=== PATIENT | male | born 1965 | race Caucasian/White ===

== ENCOUNTER → 2016-12-25 | Outpatient (CLI) | payer OTHER ==
[~2016-12-25] MED LIST: ANAPROX DS550 MG PO; IMIPRAMINE HCL50 MG PO; SKELAXIN800 MG PO; VICODIN 5/500 505 MG PO
== END | disposition home or self-care (01) ==
LOC: RAD 09:50
DX: M17.11 Unilateral primary osteoarthritis, right knee (principal)

== ENCOUNTER 2017-02-21 17:38 | Inpatient (IN) | payer OTHER ==
[~2017-02-21] VITALS: Ht 175.2 cm; Wt 86.9 kg
--- NOTE | ~2017-02-21 | DS ---
[place], [place] DISCHARGE SUMMARY NAME: CLAY FINLEY UNIT #: [id number] ROOM: 531 DOCTOR: VITALIY CARLOS MD BIRTHDATE: [birth year] DOS: 02/22/2017 DISCHARGE DIAGNOSES: 1. Musculoskeletal chest pains. 2. Normal cardiac stress test. 3. Generalized anxiety disorder. 4. Mixed hyperlipidemia. 5. Elevation of serum creatinine, compatible with stage 3A chronic kidney disease. The patient requires repeat basic metabolic profile. HOSPITAL COURSE: The patient presented to Emergency Department at [facility] for precordial chest pains going into his neck and back of his neck and was getting worse for several days. Symptoms were intermittent and he felt tightness in the center of his chest and between the shoulder blades. No nausea or diaphoresis. No shortness of breath. The patient's said that he had been under mental stress lately. The patient admitted and then ruled out for myocardial infarction with serial cardiac enzymes and finally taken for a cardiac stress test by the green jobs trainer, which was normal and the patient has been cleared by Dr. Ballard, the green jobs trainer for discharge to home today. Hyperlipidemia, on lipid profile, needs to be treated by his PCP, Dr. Dwayne Jaramillo as an outpatient. BUN and creatinine elevation to 15 and 1.38 from uncertain etiology. The patient needs reevaluation with a basic metabolic profile to see if it comes down to baseline. Generalized anxiety disorder. The patient on lorazepam and Viibryd for symptom control. I had a good discussion with the patient regarding how to control his anxiety and panic episodes. LABORATORY DATA: Normal cardiac stress test. BUN and creatinine elevation and lipid elevation as mentioned above. DISCHARGE MANAGEMENT: Viibryd 40 mg a day, lorazepam 0.5 mg b.i.d. p.r.n. for anxiety. FOLLOWUP: With Dr. Dwayne Jaramillo within a week. [place], [place] DISCHARGE SUMMARY NAME: CLAY FINLEY UNIT #: [id number] ROOM: 531 DOCTOR: VITALIY CARLOS MD BIRTHDATE: [birth year] VITALIY CARLOS MD CM:ACE [id number] VITALIY CARLOS MD 02/22/17 2014 interface
[2017-02-21 17:46] VITALS: BP 158/98
[2017-02-21 18:09] LABS: BASO % 0.6 % (0.0-1.0); EOS # 0.1 10*3/uL (0.0-0.4); EOS % 1.6 % (1.0-4.0); HEMATOCRIT 45.9 % (42.0-52.0); HEMOGLOBIN 15.8 g/dl (14.0-18.0); LYMPH # 1.7 10*3/uL (1.3-4.4); LYMPH % 26.8 % (27.0-41.0); MEAN CELL VOLUME 92.7 fl (80.0-94.0); MEAN CORPUSCULAR HGB 31.9 pg (27.0-31.0); MEAN CORPUSCULAR HGB CONC 34.4 g/dl (33.0-37.0); MEAN PLATELET VOLUME 10.9 fl (9.6-12.3); MONO # 0.5 10*3/uL (0.1-1.0); MONO % 7.8 % (3.0-9.0); PLATELET COUNT AUTOMATED 240 10*3/uL (130-400); RED BLOOD COUNT 4.95 10*6/uL (4.50-5.90); RED CELL DISTRI WIDTH 12.2 % (0-14.5); WHITE BLOOD COUNT 6.4 10*3/uL (4.8-10.8)
[2017-02-21 18:16] LABS: ACT PARTIAL THROMBO TIME 26.1 SECONDS (20.8-31.5)
[2017-02-21 18:20] LABS: ALBUMIN 4.1 gm/dl (3.1-4.5); ALKALINE PHOSPHATASE 89 U/L (45-117); BUN 15 mg/dl (7-24); CHLORIDE 105 mmol/L (98-107); CREATININE 1.38 mg/dL (0.70-1.30); MAGNESIUM 2.4 mg/dL (1.5-2.1); POTASSIUM 4.2 mmol/L (3.5-5.1); SGOT/AST 22 IU/L (3-35); SGPT/ALT 34 U/L (12-78); SODIUM 140 mmol/L (136-145); TOTAL PROTEIN 7.5 gm/dL (6.4-8.2)
[2017-02-21 18:21] LABS: TROPONIN I < 0.015 ng/ml (<0.045)
[2017-02-21] MEDS ORDERED: ATIVAN0.5 MG PO (18:25)
[2017-02-21] MEDS ORDERED: VILAZODONE 40 MG (18:25)
--- NOTE | 2017-02-21 18:48 | NUR ---
ROOM ASSIGNED. AWAITING SHIFT CHANGE BEFORE REPORT CAN BE PROVIDED. NO CHANGE IN PT CONDITION.
[2017-02-21 19:30] VITALS: BP 162/93
--- NOTE | 2017-02-21 19:45 | NUR ---
REPORT RECEIVED FROM KATEY GALEANO.
[2017-02-21 20:00] VITALS: BP 126/82
[2017-02-21 20:05] VITALS: BP 126/82
--- NOTE | 2017-02-21 20:05 | NUR ---
A 52, admitted to , under the services of Dr. TERRANCE BENTON,VITALIY Maldonado with a diagnosis of CHEST PAIN. Chief complaint is C/O CHEST PAIN DAILY X 1 WEEK. Patient arrived via stretcher from ER. Monitor applied. Initial assessment completed. Vital signs taken and recorded. DR. TERRANCE BENTON,VITALIY Maldonado notified of admission to the unit. Orders received. See assessment for past medical history, medications and allergies. Patient and/or family oriented to unit. [facility] visitation policy reviewed. Clothing/patient valuable form completed. [employer]
--- NOTE | 2017-02-21 21:48 | NUR ---
ANSWERING SERVICE CALLED. NOTIFIED OF CONSULT FOR DR. CALDWELL.
--- NOTE | 2017-02-21 22:00 | NUR ---
DR. CALDWELL RETURNED CALL. CONSULT COMPLETED. DOCTOR TO PUT ORDERS IN.
--- NOTE | 2017-02-21 23:37 | NUR ---
PATIENT MEDICATED WITH TYLENOL AND ATIVAN PER PRN ORDER FOR C/O HEADACHE AND FEELING ANXIOUS. RATED HEADACHE A 7/10 WITH 10 BEING THE WORST. SEE EMAR. REINFORCED USE OF CALL LIGHT.
[2017-02-22] VITALS: BP 121/73
--- NOTE | 2017-02-22 00:15 | NUR ---
PATIENT RESTING QUIETLY. NO FURTHER C/O VOICED.
[2017-02-22 08:00] VITALS: BP 110/64
--- NOTE | 2017-02-22 08:17 | NUR ---
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
--- NOTE | 2017-02-22 11:00 | NUR ---
INFORMED CONSENT SIGNED FOR CARDIOLYTE STRESS TEST WITH DR. CALDWELL. RESTING EKG NSR, HR 75, BP 102/70. COMPLETED 10:45 OF A STANDARD ANDRE PROTOCOL COMPLETING 1:45 STAGE IV, 4.2MPH/16% GRADE. MAXIMUM HEART RATE OF 161 ACHIEVED WHICH IS 94% PREDICTED MAXIMUM AND A PEAK BP OF 170/62. TEST TERMINATED D/T FATIGUE. HAS A HIGH EXERCISE TOLERANCE. AT START OF STAGE III, PT C/O LEFT SHOULD PAIN RATING IT A 2/10. PAIN REMAINS PRESENT 4 MINUTES INTO RECOVERY RATING 1/10. DR. CALDWELL AWARE OF C/P. LAST RECOVERY HR 114, BP 142/82. WAITING NUCLEAR SCANNING IN STABLE CONDITION.
[2017-02-22 12:00] VITALS: BP 131/90
[2017-02-22 12:18] LABS: CHOLESTEROL 221 mg/dL (<200); HDL CHOLESTEROL 56 mg/dl (40-60); LDL CHOLESTEROL 154 mg/dL (9-159); TRIGLYCERIDES 57 mg/dl (<150); VLDL CHOLESTEROL 11 mg/dL (6-40)
[2017-02-22 16:00] VITALS: BP 139/85
--- NOTE | 2017-02-22 17:15 | NUR ---
PRN ATIVAN GIVEN FOR PT RQUEST ANXIETY.
--- NOTE | 2017-02-22 18:14 | NUR ---
PRN ATIVAN EFFECTIVE FOR ANXIETY.
--- NOTE | 2017-02-22 19:08 | NUR ---
Discharge instructions reviewed with patient/family. Patient receptive and verbalizes understanding. Follow-up care arranged. Written instructions given to patient/family. THERON FAN
== END 2017-02-22 19:06 | disposition home or self-care (01) | DRG 313 ==
LOC: ED 17:38 → 5E 18:25 → EDHOLD 18:25 → 5E 18:48
PROVIDERS: Family Medicine; Nurse Practitioner Family; ADMIT Internal Medicine
PROC: 4A12XM4 Monitoring of Cardiac Stress, External Approach (ICD-10-PCS; principal; 2017-02-22)
DX: R07.89 Other chest pain (principal); E78.5 Hyperlipidemia, unspecified; F41.1 Generalized anxiety disorder; F10.20 Alcohol dependence, uncomplicated; Z88.1 Allergy status to other antibiotic agents; Z91.018 Allergy to other foods; R03.0 Elevated blood-pressure reading, without diagnosis of hypertension; N28.9 Disorder of kidney and ureter, unspecified; N18.9 Chronic kidney disease, unspecified

== ENCOUNTER → 2017-07-06 | Outpatient (CLI) | payer BC ==
[~2017-07-06] MED LIST changes: +ATIVAN0.5 MG PO; +VILAZODONE 40 MG
[2017-07-06 11:59] LABS: HEMOGLOBIN 15.3 g/dl (14.0-18.0); MEAN CELL VOLUME 91.6 fl (80.0-94.0); MEAN CORPUSCULAR HGB 31.2 pg (27.0-31.0); MEAN PLATELET VOLUME 11.1 fl (9.6-12.3); RED BLOOD COUNT 4.91 10*6/uL (4.50-5.90); RED CELL DISTRI WIDTH 12.2 % (0-14.5); WHITE BLOOD COUNT 5.9 10*3/uL (4.8-10.8)
[2017-07-06 12:11] LABS: ALBUMIN 3.7 gm/dl (3.1-4.5); ALKALINE PHOSPHATASE 92 U/L (45-117); BUN 10 mg/dl (7-24); CHLORIDE 106 mmol/L (98-107); CHOLESTEROL 198 mg/dL (<200); CREATININE 1.03 mg/dL (0.70-1.30); HDL CHOLESTEROL 59 mg/dl (40-60); LDL CHOLESTEROL 124 mg/dL (9-159); SGOT/AST 17 IU/L (3-35); SGPT/ALT 30 U/L (12-78); SODIUM 140 mmol/L (136-145); TOTAL PROTEIN 6.8 gm/dL (6.4-8.2); TRIGLYCERIDES 76 mg/dl (<150); VLDL CHOLESTEROL 15 mg/dL (6-40)
[2017-07-07 07:05] LABS: RHEUMATOID ARTHRITIS FACTOR <10.0 IU/mL (0.0-13.9)
[2017-07-07 15:07] LABS: ANTI-DSDNA ANTIBODIES 096339 <1 IU/mL (0-9)
== END | disposition home or self-care (01) ==
LOC: LAB 11:19
PROVIDERS: Family Medicine
DX: E78.00 Pure hypercholesterolemia, unspecified (principal); M25.50 Pain in unspecified joint; M79.1 Myalgia

== ENCOUNTER → 2019-07-30 | Outpatient (CLI) | payer BC ==
[2019-07-30 14:45] LABS: HEMATOCRIT 48.3 % (42.0-52.0); HEMOGLOBIN 16.4 g/dl (14.0-18.0); MEAN CORPUSCULAR HGB 31.9 pg (27.0-31.0); MEAN PLATELET VOLUME 11.1 fl (9.6-12.3); RED BLOOD COUNT 5.14 10*6/uL (4.50-5.90); RED CELL DISTRI WIDTH 12.1 % (0-14.5); WHITE BLOOD COUNT 6.3 10*3/uL (4.8-10.8)
[2019-07-30 15:20] LABS: ALBUMIN 3.8 gm/dl (3.1-4.5); ALKALINE PHOSPHATASE 87 U/L (45-117); BUN 12 mg/dl (7-24); CHLORIDE 108 mmol/L (98-107); CHOLESTEROL 190 mg/dL (<200); CREATININE 1.18 mg/dL (0.70-1.30); FREE T4 0.79 ng/dl (0.76-1.46); HDL CHOLESTEROL 58 mg/dl (40-60); LDL CHOLESTEROL 117 mg/dL (9-159); SGOT/AST 15 IU/L (3-35); SGPT/ALT 26 U/L (12-78); SODIUM 139 mmol/L (136-145); TOTAL PROTEIN 7.2 gm/dL (6.4-8.2); TRIGLYCERIDES 73 mg/dl (<150); VLDL CHOLESTEROL 15 mg/dL (6-40)
== END | disposition home or self-care (01) ==
LOC: LAB 14:04
PROVIDERS: Family Medicine
DX: Z12.5 Encounter for screening for malignant neoplasm of prostate (principal); R42 Dizziness and giddiness; E78.00 Pure hypercholesterolemia, unspecified; R53.83 Other fatigue; E55.9 Vitamin D deficiency, unspecified

== ENCOUNTER → 2021-01-14 | Outpatient (CLI) | payer BC ==
[2021-01-14 10:58] LABS: HEMATOCRIT 48.1 % (42.0-52.0); MEAN CELL VOLUME 94.3 fl (80.0-94.0); MEAN CORPUSCULAR HGB 32.4 pg (27.0-31.0); MEAN CORPUSCULAR HGB CONC 34.3 g/dl (33.0-37.0); MEAN PLATELET VOLUME 10.6 fl (9.6-12.3); RED BLOOD COUNT 5.1 10*6/uL (4.50-5.90); RED CELL DISTRI WIDTH 12.1 % (0-14.5); WHITE BLOOD COUNT 6.7 10*3/uL (4.8-10.8)
[2021-01-14 11:30] LABS: VITAMIN D, 25-HYDROXY 48.9 ng/mL (30-100)
[2021-01-14 11:44] LABS: ALBUMIN 4.3 gm/dl (3.1-4.5); ALKALINE PHOSPHATASE 92 U/L (45-117); BUN 12 mg/dl (7-24); CHLORIDE 106 mmol/L (98-107); CHOLESTEROL 204 mg/dL (<200); CREATININE 1.07 mg/dL (0.70-1.30); FREE T4 0.69 ng/dl (0.76-1.46); LDL CHOLESTEROL 130 mg/dL (9-159); POTASSIUM 4.2 mmol/L (3.5-5.1); SGOT/AST 19 IU/L (3-35); SGPT/ALT 29 U/L (12-78); SODIUM 139 mmol/L (136-145); TOTAL PROTEIN 7.8 gm/dL (6.4-8.2); TRIGLYCERIDES 72 mg/dl (<150)
== END | disposition home or self-care (01) ==
LOC: LAB 10:35
PROVIDERS: ATTEND Family Medicine
DX: Z13.220 Encounter for screening for lipoid disorders (principal); R53.83 Other fatigue; E74.9 Disorder of carbohydrate metabolism, unspecified; E78.00 Pure hypercholesterolemia, unspecified; E55.9 Vitamin D deficiency, unspecified; G47.10 Hypersomnia, unspecified; Z79.899 Other long term (current) drug therapy

== ENCOUNTER → 2022-10-06 | Outpatient (CLI) | payer BC ==
[2022-10-06 10:29] LABS: HEMATOCRIT 46.7 % (42.0-52.0); MEAN CELL VOLUME 92.8 fl (80.0-94.0); MEAN CORPUSCULAR HGB CONC 34.5 g/dl (33.0-37.0); MEAN PLATELET VOLUME 10.2 fl (9.6-12.3); RED BLOOD COUNT 5.03 10*6/uL (4.50-5.90); RED CELL DISTRI WIDTH 11.7 % (0-14.5)
[2022-10-06 11:08] LABS: ALKALINE PHOSPHATASE 79 U/L (46-116); BUN 12 mg/dl (9-23); CHLORIDE 106 mmol/L (98-107); CHOLESTEROL 173 mg/dL (<200); FREE T4 0.94 ng/dl (0.89-1.76); LDL CHOLESTEROL 114 mg/dL (9-159); POTASSIUM 4.1 mmol/L (3.4-5.1); SGPT/ALT 20 U/L (10-49); THYROID STIM HORMONE (HS) 0.593 uIU/ml (0.550-4.780); TOTAL PROTEIN 6.8 gm/dL (6.0-8.0); TRIGLYCERIDES 42 mg/dl (<150); VITAMIN D, 25-HYDROXY 23.8 ng/mL (30-100)
== END | disposition home or self-care (01) ==
LOC: LAB 10:11
PROVIDERS: ATTEND Family Medicine
DX: Z12.5 Encounter for screening for malignant neoplasm of prostate (principal); M17.11 Unilateral primary osteoarthritis, right knee; E55.9 Vitamin D deficiency, unspecified; R53.83 Other fatigue; N52.9 Male erectile dysfunction, unspecified; M25.50 Pain in unspecified joint; G47.10 Hypersomnia, unspecified

== ENCOUNTER → 2024-04-01 | Outpatient (CLI) | payer OTHER | END | disposition home or self-care (01) | LOC: CARD 14:46 | PROVIDERS: ATTEND Family Medicine | DX: I51.89 Other ill-defined heart diseases (principal); R53.83 Other fatigue; R42 Dizziness and giddiness ==